=== PATIENT | female | born 1990 | race Caucasian/White ===

== ENCOUNTER 2019-11-08 11:00 | Emergency (ER) | payer OTHER ==
--- NOTE | 2019-11-08 11:16 | TELE ---
HPI Do you have fever,cough or shortness of breath?: No - General Reason For Visit: COVID19 TESTING History Source: Patient Past History - Travel History Traveled outside of the country in the last 30 days: No Close contact w/someone who was outside of country & ill: No - Medical History Anemia: No Asthma: No Cancer: No Cardiac Disorders: No Hx Myocardial Infarction: No CVA: No COPD: No CHF: No DVT: No Dementia: No Diabetes: No Hx Glaucoma: No Dialysis: No GI Disorders: No Disorders: No HTN: No Hypercholesterolemia: No HIV: No Kidney Stones: No Liver Disease: No Psychiatric Problems: No Seizures: No Thyroid Disease: No Lung CA: No - Surgical History Abdominal Surgery: Yes (c-saection x2 ) Appendectomy: No Cardiac Surgery: No Cholecystectomy: No Gastric Stapling: No GI Surgery: No Lung Surgery: No Neurologic Surgery: No Orthopedic Surgery: No Review of Systems - Review of Systems Constitutional: No: Fever Respiratory: No: Cough *Physical Exam - Physical Exam Respiratory/Chest: negative: Respiratory Distress Discharge Diagnosis at time of Disposition: Encounter for laboratory testing for COVID-19 virus - Referrals Follow-up Referral(s): Ac Randolph MD [Primary Care Provider] - - Patient Instructions - Discharge Disposition: HOME Condition at time of Disposition: Stable
== END 2019-11-08 11:18 | disposition home or self-care (01) ==
LOC: JVIRT 11:00
DX: Z11.59 Encounter for screening for other viral diseases (principal)
CPT/HCPCS: Q3014-GT; U0003

== ENCOUNTER 2021-06-25 18:24 | Emergency (ER) | payer OTHER ==
[2021-06-25 18:52] VITALS: BP 127/85; PULSE 94; TEMP 99.1; BMI 31.1
[2021-06-25] MEDS ORDERED: CEPHALEXIN MONOHYDRATE 500 MG CAPSULE (UD) PO ONE (18:52)
[2021-06-25] MEDS ORDERED: CEPHALEXIN MONOHYDRATE 500 MG CAPSULE (UD) ONE (18:54)
== END 2021-06-25 19:02 | disposition home or self-care (01) ==
LOC: FER 18:24
DX: N61.0 Mastitis without abscess (principal)
CPT/HCPCS: 99283-25

== ENCOUNTER 2021-06-27 12:12 | Emergency (ER) | payer OTHER ==
[2021-06-27 12:42] VITALS: BP 110/69; PULSE 80; TEMP 98.6; BMI 31.1
== END 2021-06-27 12:51 | disposition home or self-care (01) ==
LOC: FER 12:12
DX: N60.42 Mammary duct ectasia of left breast (principal)
CPT/HCPCS: 99282-25